=== PATIENT | female | born 1985 | race African-American/Black ===

== ENCOUNTER 2016-05-13 01:39 | Emergency (ER) | payer OTHER ==
--- NOTE | ~2016-05-13 | CR72 ---
[facility] A Service of [facility] RADIOLOGY TEXT RESULTS PATIENT: MAXINE PEDERSEN LOCATION: [facility] : 81 UNIT #: [id number] AGE: [address]: Vince Rodriguez PAC SEX: F ORDER DR: [id number] [place], [place] [address] [id number] E MR#: [id number] Acc #: [id number] NAME: MAXINE PEDERSEN : 1985 SEX: F STUDY DATE/TIME: 05/13/2016 2:36 UNIT: MAXIMO ROOM: STUDY DESCRIPTION: CR Chest Single View Portable Attending Physician: Vince Rodriguez P.A.-C. Referring Physician: Giacomo Mcgrath M.D. Ordering Physician: Vince Rodriguez P.A.-C. Primary Care Physician: Giacomo Mcgrath M.D. MEDICAL IMAGING REPORT This report is preliminary unless electronic signature is present EXAM Portable chest. INDICATION Cough today. PROCEDURE Frontal view chest. COMPARISON 02/12/2014 FINDINGS Heart size within normal limits. No dense consolidation, effusion or pneumothorax. IMPRESSION No active process. Dictated by... Keith Quiroga M.D. THIS IS AN ELECTRONICALLY VERIFIED REPORT Keith Quiroga M.D. at 05/17/2016 7:30 AM EED/leny TD: 05/13/2016 04:45 JOB #: [id number] MEDICAL IMAGING REPORT [facility] A Service of [facility] RADIOLOGY TEXT RESULTS PATIENT: MAXINE PEDERSEN LOCATION: [facility] : 81 UNIT #: [id number] AGE: [address]: Vince Rodriguez PAC SEX: F ORDER DR: Page 1 of 1 COPY
[~2016-05-13 01:39] MED LIST: AZITHROMYCIN250 MG PO; BENTYL10 MG PO; FAMOTIDINE PO; FIORINAL CAPSUL1 CAP PO; FLEXERIL PO; FLEXERIL10 M1 PO; FLONASE 0.05% N16 G1; IBUPROFEN800 MG PO; NO MEDICATIONS; NORCO 5/325 TAB1 TAB PO; PHENERGAN25 M1 PO; TESSALON PERLE100 M1 PO; TESSALON200 MG PO; TRIPHASIL-281 TAB PO; VOLTAREN PO; ZITHROMAX PO; ZITHROMAX1 G/PKT PO; ZOFRAN ODT4 MG PO; ZOLOFT PO; ZYRTEC PO
== END 2016-05-13 03:13 | disposition home or self-care (01) ==
LOC: CED 01:39
DX: J20.9 Acute bronchitis, unspecified (principal); J45.909 Unspecified asthma, uncomplicated; Z98.51 Tubal ligation status
CPT/HCPCS: 71010; 94640; 99283

== ENCOUNTER 2016-09-10 11:51 | Emergency (ER) | payer OTHER ==
[~2016-09-10] VITALS: Ht 165.1 cm; Wt 84.4 kg
--- NOTE | ~2016-09-10 | EKG ---
PATIENT: MAXINE PEDERSEN UNIT #: [id number] Ventricular Rate: 63 BPM Atrial Rate: 63 BPM P-R Interval: 136 ms QRS Duration: 94 ms Q-T Interval: 386 ms QTC Calculation(Bezet): 395 ms P [place]: 30 degrees Calculated R [place]: 59 degrees Calculated T [place]: 47 degrees Diagnosis Line: Normal sinus rhythm Diagnosis Line: Normal ECG Diagnosis Line: When compared with ECG of 17-JAN-2015 14:32, Diagnosis Line: No significant change was found Diagnosis Line: Confirmed by SONJA LEIJA MD ([id number]) on 09/11/2016 Diagnosis Line: 8:36:48 AM INTERPRETING MD: [place]
--- NOTE | ~2016-09-10 | US61 ---
[facility] A Service of [facility] RADIOLOGY TEXT RESULTS PATIENT: MAXINE PEDERSEN LOCATION: [facility] : 81 UNIT #: [id number] AGE: [address]: Chucky Hurtado MD SEX: F ORDER DR: [id number] [facility] [address] [place], [place] [address] [id number] E MR#: [id number] Acc #: [id number] NAME: MAXINE PEDERSEN : 1985 SEX: F STUDY DATE/TIME: 09/10/2016 12:50 UNIT: [facility] ROOM: STUDY DESCRIPTION: US /Mat <14Wk / Attending Physician: Chucky Hurtado M.D. Ordering Physician: Chucky Hurtado M.D. Primary Care Physician: Giacomo Mcgrath M.D. MEDICAL IMAGING REPORT This report is preliminary unless electronic signature is present EXAM Pelvic ultrasound transabdominal technique only 09/10/2016 INDICATION Left-sided pelvic pain 2 days. Pelvic pain for a week. The patient "has been feeling hot the last 48 hours". Pelvic pain is become worse the last 12 hours. TECHNIQUE Sonographic imaging of the pelvis was performed transabdominally only. No comparisons. FINDINGS Findings have been discussed with Dr. Hurtado of the emergency department prior to this dictation. The patient had a positive qualitative beta at the bedside. A quantitative beta is not available. The uterus measures about 6.1 x 5.6 x 8.9 cm. No intrauterine identified. Small amount of fluid or potentially a small pseudo sac in the uterus noted. In the right adnexa, the technologist has placed calipers upon an oval structure measuring up to 2.7 x 2.2 cm. Within the oval hypoechoic structure, there is what has been labeled a pole measuring up to 1.9 cm. heart tones have been documented by the technologist in the range of 160-170 beats per minute. There is peripheral vascularity associated with the structure. Imaging features are suspicious for ectopic and according to Dr. Hurtado clinical suspicion for ectopic and rupture is high in this patient. There is free fluid in the right and left adnexa with some complicated features. Neither ovary identified on either side. Surgical referral is recommended. By report of Dr. Hurtado, the patient is in the process of being transferred to [facility] for further surgical management [facility] A Service of [facility] RADIOLOGY TEXT RESULTS PATIENT: MAXINE PEDERSEN LOCATION: [facility] : 81 UNIT #: [id number] AGE: [address]: Chucky Hurtado MD SEX: F ORDER DR: and the patient presented with hypotension and signs of peritonitis on exam. IMPRESSION 1. The examination is abnormal. Results have been discussed with Dr. Hurtado in the emergency department prior to this dictation. No intrauterine is identified. There are a constellation of features in this patient most characteristic of ectopic . This likely represents a ruptured ectopic with free fluid and some complicated features of the fluid in the pelvis. Dr. Hurtado indicates the patient is in the process of being transferred to [facility] for surgical management. 2. Small amount of fluid within the endometrial canal of the uterus which may represent a pseudo sac in the setting of ectopic . 3. Neither ovary identified. STAT * RESULT Dictated by... Rene Villela M.D. THIS IS AN ELECTRONICALLY VERIFIED REPORT Rene Villela M.D. at 09/10/2016 5:18 PM BERNARD/neymar TD: 09/10/2016 14:03 JOB #: [id number] MEDICAL IMAGING REPORT Page 1 of 1 COPY
[2016-09-10 12:54] LABS: BASOPHIL% 0.3 % (0-2.5); DIFF IND NO; EOSINOPHIL# 0.1 X10e3 (0-0.7); EOSINOPHIL% 1.5 % (0.0-7.0); HEMATOCRIT 33.2 % (35.0-45.0); HEMOGLOBIN 10.7 gm/dL (12.0-16.0); LYMPHOCYTE# 1.9 X10e3 (1.0-3.5); LYMPHOCYTE% 21.7 % (17.0-45.0); MEAN CELL VOLUME 85.9 FL (83-96); MEAN CORPUSCULAR HEMOGLOBIN 27.8 PG (28-34); MEAN CORPUSCULAR HGB CONC 32.4 g/dL (30-36); MEAN PLATELET VOLUME 8.3 FL (6.5-11.5); MONOCYTE# 0.4 X10e3 (0-1.0); MONOCYTE% 4.3 % (3.0-12.0); NEUTROPHIL# 6.4 X10e3 (1.5-7.1); NEUTROPHIL% 72.2 % (40-75); PLATELET COUNT 286 X10e3 (140-420); RED BLOOD COUNT 3.86 X10e (3.90-5.30); RED CELL DISTRIBUTION WIDTH 14.4 % (11.0-15.5); WHITE BLOOD COUNT 8.9 X10e3 (4.0-10.5)
[2016-09-10 12:54] LABS: URINE SOURCE CLEAN CATCH
[2016-09-10 12:58] LABS: URINE APPEARANCE CLEAR; URINE BILIRUBIN NEG (NEG); URINE BLOOD NEG (NEG); URINE COLOR YELLOW; URINE GLUCOSE NEG (NEG); URINE KETONE NEG (NEG); URINE LEUKOCYTE ESTERASE 1+ (NEG); URINE NITRATE NEG (NEG); URINE PH 7.5 (5-8); URINE PROTEIN TRACE (NEG); URINE SPECIFIC GRAVITY 1.023 (1.003-1.035); URINE UROBILINOGEN 0.2 MG/DL (NEG)
[2016-09-10 13:00] LABS: CULTURE INDICATED? YES; URBCS1 AUWI 0-2 /[HPF] (0-2); URINE BACTERIA AUWI 1+ (NEGATIVE); URINE SQUAMOUS EPITHELIAL CELL OCC /[HPF]
[2016-09-10 13:18] LABS: ALBUMIN SERUM 3.7 g/dL (3.5-5.0); ALKALINE PHOSPHATASE 45 U/L (32-92); ALT (SGPT) 25 U/L (10-40); AMYLASE 39 U/L (0-46); AST (SGOT) 19 U/L (10-42); BILIRUBIN,TOTAL 0.4 mg/dL (0.2-2.0); BLOOD UREA NITROGEN 10 mg/dL (9-23); BUN/CREATININE RATIO 11.11; CALCIUM SERUM 8.9 mg/dL (8.4-10.2); CARBON DIOXIDE 26 mmol/L (22-31); CHLORIDE 105 mmol/L (100-111); CREATININE SERUM 0.9 mg/dL (0.6-1.4); GLOM FILT RATE Estimated 98.1 mL/min (>60); GLUCOSE FASTING 129 mg/dL (70-110); LIPASE 27 U/L (22-51); POTASSIUM 3.3 mmol/L (3.5-5.1); PROTEIN TOTAL SERUM 7.3 g/dL (6.0-8.3); SODIUM 136 mmol/L (135-145)
[2016-09-10 13:19] LABS: BILIRUBIN, DIRECT <0.1 mg/dL (0.0-0.2); BILIRUBIN,INDIRECT 0.3 mg/dL (0.0-0.9)
== END 2016-09-10 13:49 | disposition short-term general hospital (02) ==
LOC: CED 11:51
PROVIDERS: Emergency Medicine
DX: O00.90 Unspecified ectopic pregnancy without intrauterine pregnancy (principal)
CPT/HCPCS: 36415; 76801; 80048; 80076; 81003; 82150; 83690; 84702; 84703; 85025; 87086; 93005; 96361; 96374; 96375; 99291; J2405; J3010